=== PATIENT | male | born 1995 | race Caucasian/White ===

== ENCOUNTER 2020-05-22 17:59 | Emergency (ER) | payer SELFPAY ==
[~2020-05-22] VITALS: Ht 167.6 cm; Wt 93.2 kg
[2020-05-22 19:51] VITALS: BP 125/81
== END 2020-05-22 20:09 | disposition home or self-care (01) ==
LOC: M ED 17:59
DX: M79.673 Pain in unspecified foot (principal); Z02.79 Encounter for issue of other medical certificate